=== PATIENT | female | born 1960 | race Caucasian/White ===

== ENCOUNTER 2019-12-07 08:15 | Inpatient (IN) | payer OTHER, SELFPAY ==
[2019-12-07] MEDS ORDERED: Albuterol Sulfate 2.5 mg/3 ml Neb ONE (08:27)
[2019-12-07] MEDS ORDERED: methylPREDNISolone Sod Succ/PF 125 MG/2 ML VIAL ONE (08:42)
[2019-12-07] MEDS ORDERED: Magnesium 2 GM/50 ML BAG (IN WATER) ONE (08:42)
[2019-12-07 09:48] LABS: #Basophils 0.1 thou/uL (0.0-0.2); #Eosinphils 0.6 thou/uL (0.0-0.7); #Lymphocytes 1.6 thou/uL (1.20-3.40); #Monocytes 0.6 thou/uL (0.11-0.59); #Neutrophils 6.1 thou/uL (1.40-6.50); %Basophils 0.8 % (0.0-1.0); %Lymphocytes 17.6 % (21.0-51.0); %Monocytes 6.4 % (0.0-10.0); %Neutrophils 68.2 % (42.0-75.0); Hemoglobin 15.9 g/dL (12.0-16.0); Mean Corpuscular HGB CONC 33.3 g/dL (32.0-36.0); Mean Corpuscular Hemoglobin 32.3 pg (27.0-31.0); Mean Corpuscular Volume 96.8 fL (78.0-98.0); Mean Platelet Volume 8.3 fL (7.4-10.4); Platelet Count 223 thou/uL (130-400); RBC Distribution Width 12.4 % (11.5-14.5); Red Blood Cell (RBC) Count 4.92 mill/uL (4.20-5.40); White Blood Cell (WBC) Count 8.9 thou/uL (4.8-10.8)
[2019-12-07 10:09] LABS: ALT (SGPT) 17 U/L (8-55); AST (SGOT) 20 U/L (5-34); Albumin 4.2 g/dL (3.5-5.0); Alkaline Phosphatase 76 U/L (40-110); Anion Gap 15 mmol/L (10-20); BUN (Urea Nitrogen) 16 mg/dL (9.8-20.1); Bilirubin, Total 0.3 mg/dL (0.2-1.2); Calc. Creatinine Clearance 0 mL/min (70-130); Carbon Dioxide 21 mmol/L (22-29); Chloride 107 mmol/L (98-107); Estimated GFR-MDRD Greater than 90; Globulin 2.7 g/dL (2.4-3.5); Glucose 109 mg/dL (70-105); Potassium 4.1 mmol/L (3.5-5.1); Protein, Total 6.9 g/dL (6.0-8.3); Sodium 139 mmol/L (136-145)
--- NOTE | 2019-12-07 10:17 | RAD ---
PORTABLE CHEST: HISTORY: Asthma and dyspnea. COMPARISON: None. FINDINGS: The lungs appear well aerated and clear. No infiltrate or vascular congestion. Heart size is normal. IMPRESSION: No acute process. POS: AGW
[2019-12-07] MEDS ORDERED: Senokot S 8.6-50 MG TAB PO PRN (14:05)
[2019-12-07 14:24] VITALS: BMI 20.1
[2019-12-07] MEDS: Acetaminophen 325 MG TAB PO PRN (18:07)
[2019-12-07] MEDS ORDERED: hydrOXYzine 25 MG TAB PO PRN (18:16)
[2019-12-07] MEDS: Mometasone 200 MCG/Formoterol 5 MCG 120 PUFF INHALER INH SCH ×2 (19:15→20:52)
[2019-12-07] MEDS ORDERED: Diclofenac Sodium 50 MG DR TAB PO SCH (19:30)
[2019-12-07] MEDS: Famotidine 20 MG TAB PO SCH (21:37)
[2019-12-07] MEDS: busPIRone HCl 10 MG TAB PO SCH (21:38)
[2019-12-08] MEDS: Acetaminophen 325 MG TAB PO PRN (00:12)
[2019-12-08] MEDS ORDERED: Ipratropium Bromide 2.5 ml Neb NEB SCH (01:00)
[2019-12-08 05:13] LABS: #Eosinphils 0.1 thou/uL (0.0-0.7); #Lymphocytes 1.3 thou/uL (1.20-3.40); #Monocytes 0.8 thou/uL (0.11-0.59); #Neutrophils 10.7 thou/uL (1.40-6.50); %Basophils 0.4 % (0.0-1.0); %Eosinophils 0.5 % (0.0-10.0); %Lymphocytes 10.3 % (21.0-51.0); %Monocytes 6.4 % (0.0-10.0); %Neutrophils 82.4 % (42.0-75.0); Hemoglobin 14.5 g/dL (12.0-16.0); Mean Corpuscular HGB CONC 33.4 g/dL (32.0-36.0); Mean Corpuscular Hemoglobin 31.8 pg (27.0-31.0); Mean Corpuscular Volume 95.1 fL (78.0-98.0); Mean Platelet Volume 8.3 fL (7.4-10.4); Platelet Count 267 thou/uL (130-400); RBC Distribution Width 12.4 % (11.5-14.5); Red Blood Cell (RBC) Count 4.56 mill/uL (4.20-5.40)
[2019-12-08 05:37] LABS: Anion Gap 11 mmol/L (10-20); BUN (Urea Nitrogen) 16 mg/dL (9.8-20.1); Calc. Creatinine Clearance 69 mL/min (70-130); Calcium 8.9 mg/dL (7.8-10.44); Carbon Dioxide 22 mmol/L (22-29); Chloride 107 mmol/L (98-107); Estimated GFR-MDRD Greater than 90; Glucose 123 mg/dL (70-105); Potassium 4.4 mmol/L (3.5-5.1); Sodium 136 mmol/L (136-145)
[2019-12-08] MEDS ORDERED: Diclofenac Sodium 50 MG DR TAB PO SCH (08:00)
[2019-12-08] MEDS: Mometasone 200 MCG/Formoterol 5 MCG 120 PUFF INHALER INH SCH (08:09)
[2019-12-08 08:18] VITALS: BP 111/72; TEMP 98.3
[2019-12-08] MEDS ORDERED: Enoxaparin Sodium 40 MG/0.4 ML SYRINGE SC SCH (09:00)
[2019-12-08] MEDS ORDERED: methylPREDNISolone Sod Succ/PF 125 MG/2 ML VIAL IVP SCH (09:00)
[2019-12-08] MEDS ORDERED: Albuterol 200 PUFF (6.7GM INHALER) INH PRN (09:10)
[2019-12-08] MEDS: busPIRone HCl 10 MG TAB PO SCH (09:41)
[2019-12-08] MEDS: Famotidine 20 MG TAB PO SCH (09:42)
[2019-12-08] MEDS ORDERED: Albuterol 200 PUFF (6.7GM INHALER) INH SCH (11:00)
[2019-12-08] MEDS ORDERED: Ipratropium Oral Inhaler INH PRN (11:51)
[2019-12-08 11:58] LABS: SARS-CoV-2 MS2 Positive; SARS-CoV-2 N Gene Negative; SARS-CoV-2 S Gene Negative; SARS-CoV-2 by NAA Not Detected (NotDetected); SARS-CoV-2 orf1ab Negative
[2019-12-08] MEDS ORDERED: predniSONE 20 MG TAB PO SCH (12:00)
--- NOTE | 2019-12-08 13:22 | HP ---
She has no PCP. CHIEF COMPLAINT: Shortness of breath. HISTORY OF PRESENT ILLNESS: Ms. Zayas is a 59-year-old female, who presents to the emergency room today with worsening shortness of breath over the last week. She reports that she has moved to [place] from [place] about a month ago and is currently without her Medicaid coverage as it has not switched over from [place] to [place]. She has been out of her Symbicort for a week, and she reports that she has had gradual dyspnea with wheezing. Today, they gave her continuous neb, steroids, and magnesium IV piggyback, and she did initially improve and then they got her up to do a test and they noted that she became hypoxic in the 80s on room air, so they decided that she needed to be admitted for further management. REVIEW OF SYSTEMS: Reports cough, shortness of breath, and wheezing. Denies other symptoms, fever, chills, or abdominal pain. All systems are reviewed and are negative unless mentioned above or in the HPI. PAST MEDICAL HISTORY: Asthma, anxiety. SURGICAL HISTORY: She has had x2. She has had multiple leg surgeries. PSYCHIATRIC HISTORY: Anxiety, depression, and posttraumatic stress disorder. SOCIAL HISTORY: Denies any alcohol or drug use. Used to smoke and stopped years ago. ALLERGIES: TO PENICILLINS. CURRENT MEDICATIONS: Per the ER system, 1. Symbicort 160/4.5 two puffs b.i.d. 2. Spiriva 18 mcg. 3. Albuterol inhaler 1 to 2 puffs q.4 hours as needed. 4. BuSpar 10 mg p.o. 5. Hydroxyzine 25 mg q.6 hours as needed for anxiety. PHYSICAL EXAMINATION: VITAL SIGNS: Blood pressure 123/79, pulse is 98, respiratory rate is 17, and pO2 sats 92 on 2 L. CONSTITUTIONAL: The patient appears nontoxic. She is alert and oriented to person, place, and time. HEENT: Head is atraumatic and normocephalic. Eyes, pupils are equal, round, and reactive to light. ENT; mouth exam is normal. Mucous membranes moist. She is without any teeth, dentition. NECK: Normal range of motion. Trachea is midline. EXTREMITIES: Upper extremities, normal range of motion. Motor strength is normal. Radial pulses are normal. Lower extremity, normal range of motion and motor strength pedal pulses are normal. No edema is noted. NEURO: The patient is oriented to person, place, and time. Speech is normal. She has a little rushed speech, but states that she feels a little anxious as this is a new hospital, new state and her family is not able to visit her. She is a little rushed and little anxious. SKIN: Warm and dry. Normal in color. PSYCH: Has a normal affect. See above. LABORATORY DATA: EKG in the ER shows sinus tach, [address] segments are normal. T-waves are normal. CBC; white blood cell count is 8.9, hemoglobin is 15.9, hematocrit is 47.6, and platelet count is 223. Chemistry unremarkable, carbon dioxide 21, glucose 109. The rest of it is within normal limits. PLAN AND ASSESSMENT: 1. Asthma exacerbation with hypoxia. We will restart her Symbicort and Spiriva. Add DuoNeb q.6 hours p.r.n., q.4 hours while awake; Solu-Medrol 125 IV push daily. 2. History of anxiety and posttraumatic stress disorder. We will restart her hydroxyzine. 3. GI and DVT prophylaxis started. Case discussed with Dr. Hodges. We will require 2 to 3 days' hospital stay to resolve the hypoxia and asthma exacerbation. Hospital course dependent on clinical findings. Job ID: [id number]
--- NOTE | 2019-12-09 10:00 | DIS ---
DATE OF ADMISSION: 12/07/2019 DATE OF DISCHARGE: 12/08/2019 DISCHARGE DIAGNOSES: 1. Acute hypoxic respiratory failure secondary to asthma exacerbation. 2. Leukocytosis. BRIEF HISTORY OF PRESENT ILLNESS: This is a 59-year-old female with a past medical history of asthma, who presented to the emergency room with persistent cough and shortness of breath over the last 1 week. The patient states that she moved to [place] from [place] a month ago. She stated that she ran out of her Symbicort for a week. When she presented to the emergency room, her oxygen saturation was in the 80s on room air. After continuous nebulizer treatment, she remained hypoxic, so she was admitted for further management. HOSPITAL COURSE: Acute hypoxic respiratory failure secondary to asthma exacerbation: Patient received IV Solu-Medrol, DuoNeb and Dulera. Patient improved significantly with this. She still had some mild wheezing at discharge. Patient requested that I refill her Spiriva and Symbicort. However, the patient does not have Medicaid since she has not applied for Medicaid in [place] as of yet. I discharged her with Dulera since she is able to get a free sample with this. Spiriva costs 400 dollars. I discussed with case management and there are no cheaper options including Atrovent or ipratropium. Therefore, she was discharged with a prescription for Singulair. She does have a Proventil inhaler p.r.n. at home. She will take prednisone for an additional 4 days as well as be given a 5 day course of azithromycin and mucinex as well. She should follow up with her PCP in a week. I also her to follow up with lung doctor if she needs Spiriva in the hopes that she could possibly get a free sample. Leukocytosis: The patient had a white count of 13.0 at the time of discharge. She had no fevers. Her chest x-ray showed no evidence of pneumonia. She is discharged with prednisone 40 mg daily. DISCHARGE PHYSICAL EXAMINATION: VITAL SIGNS: Temperature 98.3, heart rate 94, respiratory rate 20, O2 saturation 96% on room air, blood pressure 111/72. GENERAL: The patient is alert, awake, and oriented x3. CVS: Regular rate and rhythm with no murmurs, rubs, or gallops. LUNGS: The patient has scattered wheezing, more pronounced on the left side, but also on the right lower lobe. ABDOMEN: Positive bowel sounds, soft, nontender, nondistended. EXTREMITIES: No edema. LABORATORY DATA: CBC on 12/07: White count 13.0, hemoglobin 14.5, hematocrit 43.4, platelets 267. BMP on 12/07: Normal. LFTs on 12/06: Normal. Troponin I: Less than 0.10. COVID PCR on 12/06: Negative. IMAGING STUDIES: Chest x-ray on 12/06: Shows no acute process. DISCHARGE CONDITION: Stable. ACTIVITY: As tolerated. DIET: Regular diet. DISCHARGE MEDICATIONS: 1. Dulera 200 mcg/5 mcg inhaler 2 puff inhaled b.i.d. 2. Singulair 10 mg p.o. daily. 3. Prednisone 40 mg p.o. daily for 4 days. 4. Azithromycin x 5 days 5. Mucinex 600 mg po bid DISCHARGE INSTRUCTIONS: The patient should follow up with her PCP in a week and consider following up with a lung doctor. Start taking Singulair and Dulera twice daily. Try to apply for Medicaid as soon as possible. She can try to get Spiriva if needed. Job ID: [id number]
== END 2019-12-08 13:20 | disposition home or self-care (01) | DRG 189 ==
LOC: ERS 08:15 → T4-A 12:27
PROVIDERS: ADMIT Internal Medicine; ATTEND Internal Medicine
DX: J96.01 Acute respiratory failure with hypoxia (principal); J45.901 Unspecified asthma with (acute) exacerbation; Z20.828 Contact with and (suspected) exposure to other viral communicable diseases; F41.9 Anxiety disorder, unspecified; F43.10 Post-traumatic stress disorder, unspecified; F32.9 Major depressive disorder, single episode, unspecified; D72.829 Elevated white blood cell count, unspecified; Z88.0 Allergy status to penicillin; Z79.51 Long term (current) use of inhaled steroids; Z79.899 Other long term (current) drug therapy
CPT/HCPCS: 36415; 71045; 80048; 80053; 83880; 84484; 85025; 87635; 93005; 94640; 94644; J1650; J2930; J3475; J7512; J7611; J7620; U0003

== ENCOUNTER 2025-02-27 09:29 | Emergency (ER) | payer MEDICAID ==
[2025-02-27] MEDS ORDERED: Acetaminophen 500 MG TAB ONE (10:44)
[2025-02-27 11:06] LABS: #Basophils 0.07 10x3/uL (0.0-0.2); #Eosinophils 0.12 10x3/uL (0.0-0.7); #Monocytes 0.48 10x3/uL (0.11-0.59); #Neutrophils 4.56 10x3/uL (1.40-6.50); %Basophils 1.0 % (0.0-1.0); %Eosinophils 1.7 % (0.0-10.0); %Lymphocytes 24.4 % (21.0-51.0); %Monocytes 6.9 % (0.0-10.0); %Neutrophils 65.6 % (42.0-75.0); Hematocrit 46.4 % (36.0-47.0); Hemoglobin 15.6 g/dL (12.0-16.0); Mean Corpuscular Hemoglobin 30.2 pg (27.0-31.0); Mean Corpuscular Volume 89.9 fL (78.0-98.0); Platelet Count 314 10x3/uL (130-400); Red Blood Cell (RBC) Count 5.16 mill/uL (4.20-5.40); White Blood Cell (WBC) Count 6.96 10x3/uL (4.8-10.8)
[2025-02-27 11:24] LABS: ALT (SGPT) 24 U/L (Less than 34); AST (SGOT) 31 U/L (11-34); Albumin 4.4 g/dL (3.1-4.5); Alkaline Phosphatase 81 U/L (40-110); Anion Gap 11 mmol/L (10-20); BUN (Urea Nitrogen) 12 mg/dL (9.8-20.1); Bilirubin, Total 0.3 mg/dL (0.3-1.2); Calc. Creatinine Clearance 0 mL/min (70-130); Calcium 10.2 mg/dL (7.8-10.44); Carbon Dioxide 27 mmol/L (23-31); Chloride 105 mmol/L (98-107); Globulin 3.0 g/dL (2.4-3.5); Glucose 101 mg/dL (80-115); Potassium 4.0 mmol/L (3.5-5.1); Sodium 139 mmol/L (136-145)
== END 2025-02-27 11:34 | disposition home or self-care (01) ==
LOC: ERS 09:29
DX: I10 Essential (primary) hypertension (principal); G44.209 Tension-type headache, unspecified, not intractable; J44.89 Other specified chronic obstructive pulmonary disease; Z79.51 Long term (current) use of inhaled steroids
CPT/HCPCS: 80053; 85025; 93005; 96372; 99284